=== PATIENT | male | born 1950 | race Caucasian/White ===

== ENCOUNTER 2022-07-11 11:03 | Day surgery (SDC) | payer MEDICARE, BC ==
[~2022-07-11] VITALS: Ht 175.3 cm; Wt 88.2 kg
[~2022-07-11 11:03] MED LIST: ALFU10TA PO; LEVO100T PO; LOSA1TAB41 PO; MULT-342 PO; OMEP20CA15 PO; SODI44SP NS
[2022-07-11 11:25] VITALS: BP 163/87
[2022-07-11] MEDS ORDERED: ceFAZolin inj. 2,000 MG in dextrose 5%-water 100 ML IV ONE (11:29)
[2022-07-11] MEDS ORDERED: metoprolol tartrate 12.5mg (1/2 tablet) PO ONE (11:30)
[2022-07-11 11:58] LABS: BASOPHILS % (AUTO) 0.5 % (0-1); EOSINOPHILS # (AUTO) 0.1 X10'3 (0-0.9); EOSINOPHILS % (AUTO) 2.5 % (0-6); HEMOGLOBIN 13.6 g/dl (14.0-17.9); LYMPHOCYTES # (AUTO) 1.3 X10'3 (1.1-4.8); MEAN CORPUSCULAR HEMOGLOBIN 31.9 PG (27.0-31.0); MEAN CORPUSCULAR HGB CONC 34.1 g/dL (33.0-36.5); MEAN CORPUSCULAR VOLUME 93.5 FL (78-98); MEAN PLATELET VOLUME 8.6 FL (7.4-10.4); MONOCYTES # (AUTO) 0.9 X10'3 (0-0.9); MONOCYTES % (AUTO) 16.5 % (2-12); NEUTROPHILS # (AUTO) 3.3 X10'3 (1.8-7.7); NEUTROPHILS % (AUTO) 57.5 % (42-75); PLATELET COUNT 319 X10'3 (140-440); RED BLOOD COUNT 4.28 X10'6 (4.70-6.10); RED CELL DISTRIBUTION WIDTH 13.1 % (11.5-14.5); WHITE BLOOD COUNT 5.8 X10'3 (4.5-11.0)
[2022-07-11] MEDS ORDERED: CARV12.549 PO (12:00)
[2022-07-11] MEDS ORDERED: TOLT2CAP21 PO (12:00)
[2022-07-11] MEDS ORDERED: NITR0.4T51 SL (12:00)
[2022-07-11] MEDS ORDERED: ASPI81TA52 PO (12:00)
[2022-07-11] MEDS ORDERED: MULT-1085 PO (12:00)
[2022-07-11] MEDS ORDERED: MIRA50TA PO (12:00)
[2022-07-11 12:02] LABS: ALBUMIN 3.7 G/DL (3.4-5.0); ANION GAP 6 (8-16); BLOOD UREA NITROGEN 11 MG/DL (7-18); BUN/CREATININE RATIO 13.9 (5.4-32.0); CALCIUM 9.2 MG/DL (8.5-10.1); CHLORIDE 98 MMOL/L (99-107); CREATININE 0.79 MG/DL (0.60-1.10); GLUCOSE 90 MG/DL (70-104); POTASSIUM 4.2 MMOL/L (3.5-5.1); SODIUM 133 MMOL/L (135-145); TOTAL CARBON DIOXIDE 29.2 MMOL/L (24-32); eGFR > 90 ML/MIN
[2022-07-11] MEDS ORDERED: proCHLORperazine 10 MG/2 ml inj ONE (13:15)
[2022-07-11] MEDS ORDERED: midazolam 1 mg/ML 2ml injection ONE (13:15)
[2022-07-11] MEDS ORDERED: fentaNYL/PF 50MCG/1 ML 2ML syringe ONE (13:15)
[2022-07-11] MEDS ORDERED: ceFAZolin 1000mg inj ONE (13:15)
[2022-07-11] MEDS ORDERED: LIDOCAINE 1%/EPI 1:100,000 inj. 10 ML multi-dose vial ONE (13:16)
[2022-07-11 14:35] VITALS: BP 156/82
[2022-07-11 14:58] VITALS: BP 142/79
[2022-07-11 15:15] VITALS: BP 162/81
[2022-07-11 15:30] VITALS: BP 151/81
[2022-07-11 16:00] VITALS: BP 146/78
[2022-08-06] MEDS ORDERED: LEVO-65 PO (09:11)
== END 2022-07-11 16:20 | disposition home or self-care (01) ==
LOC: SSTAY O 11:03
PROVIDERS: ATTEND Thoracic Surgery (Cardiothoracic Vascular Surgery)
DX: Z45.09 Encounter for adjustment and management of other cardiac device (principal); I10 Essential (primary) hypertension; F10.10 Alcohol abuse, uncomplicated; Z88.2 Allergy status to sulfonamides; Z98.890 Other specified postprocedural states; Z79.82 Long term (current) use of aspirin; Z79.899 Other long term (current) drug therapy
CPT/HCPCS: 33228; 36415; 80048; 85025; 85610; C1785; J0690; J0780; J2250; J3010; J3490; J7030; J7060; 99152; 99153; A6258